=== PATIENT | female | born 1985 | race Two or more races ===

== ENCOUNTER 2022-07-27 20:56 | Emergency (ER) | payer OTHER ==
[~2022-07-27] VITALS: Ht 154.9 cm; Wt 80.0 kg
[2022-07-28 02:30] VITALS: BP 148/94
== END 2022-07-28 02:35 | disposition home or self-care (01) ==
LOC: ER 20:59
DX: G51.0 Bell's palsy (principal)
CPT/HCPCS: 70450; 71045